=== PATIENT | female | born 1950 | race Caucasian/White ===

== ENCOUNTER 2018-10-14 17:34 | Emergency (ER) | payer MEDICARE, MEDICAID ==
[~2018-10-14] VITALS: Ht 170.2 cm; Wt 101.6 kg
--- NOTE | 2018-10-14 18:59 | NUR ---
Pain med given per Abby RN as per eMar to prepare for transport to CT.
[2018-10-14] MEDS ORDERED: fentaNYL INJECTION 100 MCG/2 ML AMP IVP ONE ×2 (19:00→20:45)
--- NOTE | 2018-10-14 19:00 | NUR ---
Report to Abby SHEEHAN.
[2018-10-14 19:10] LABS: BASOPHILS % (AUTO) 1 % (0-10); EOSINOPHILS % (AUTO) 2 % (0-10); HEMATOCRIT 41 % (35-52); HEMOGLOBIN 12.9 G/DL (11.5-16.0); LYMPHOCYTES # (AUTO) 2.8 X 10^3 (1.0-4.0); LYMPHOCYTES % (AUTO) 37 % (12-44); MEAN CORPUSCULAR HEMOGLOBIN 29 PG (25-34); MEAN CORPUSCULAR HGB CONC 31 G/DL (32-36); MEAN CORPUSCULAR VOLUME 92 FL (80-99); MEAN PLATELET VOLUME 10.1 FL (7.4-10.4); MONOCYTES % (AUTO) 9 % (0-12); NEUTROPHILS # (AUTO) 3.8 X 10^3 (1.8-7.8); NEUTROPHILS % (AUTO) 51 % (42-75); PLATELET COUNT 284 10^3/uL (130-400); RED CELL DISTRIBUTION WIDTH 16.2 % (10.0-14.5); WHITE BLOOD COUNT 7.5 10^3/uL (4.3-11.0)
[2018-10-14 19:11] LABS: BASOPHILS # (AUTO) 0.1 10^3/uL (0.0-0.1); EOSINOPHILS # (AUTO) 0.1 10^3/uL (0.0-0.3); MONOCYTES # (AUTO) 0.7 X 10^3 (0.0-1.0)
[2018-10-14 19:12] LABS: CALCIUM 9.6 MG/DL (8.5-10.1); CREATININE SERUM 0.98 MG/DL (0.60-1.30); POTASSIUM 4.6 MMOL/L (3.6-5.0)
[2018-10-14 19:13] LABS: ALBUMIN 3.8 GM/DL (3.2-4.5); BILIRUBIN,TOTAL 0.2 MG/DL (0.1-1.0); TOTAL PROTEIN 6.2 GM/DL (6.4-8.2)
[2018-10-14 19:14] LABS: BILIRUBIN,URINE NEGATIVE (NEGATIVE); CLARITY,URINE SL CLOUDY; COLOR,URINE DARK YELLOW; GLUCOSE, URINE (UA) NEGATIVE (NEGATIVE); KETONES,URINE TRACE (NEGATIVE); LEUKOCYTE ESTERASE ,URINE TRACE (NEGATIVE); NITRITE,URINE NEGATIVE (NEGATIVE); PROTEIN,URINE TRACE (NEGATIVE); UROBILINOGEN,URINE 0.2 MG/DL (NORMAL)
[2018-10-14 19:15] LABS: BACTERIA,URINE MODERATE /HPF; SQUAMOUS EPITHELIAL CELL,UR 25-50 /HPF
[2018-10-14] MEDS ORDERED: RANI300T4 (19:15)
[2018-10-14] MEDS ORDERED: FENO54TA (19:15)
[2018-10-14] MEDS ORDERED: METO100T12 (19:15)
[2018-10-14] MEDS ORDERED: FLT22013 (19:15)
[2018-10-14] MEDS ORDERED: PREG100C (19:15)
[2018-10-14] MEDS ORDERED: SIMV40TA4 (19:15)
[2018-10-14] MEDS ORDERED: CELE-63 (19:15)
[2018-10-14] MEDS ORDERED: LOSA100T57 (19:15)
[2018-10-14] MEDS ORDERED: BUPR150T7 (19:15)
[2018-10-14] MEDS ORDERED: DULO30CA48 (19:15)
[2018-10-14] MEDS ORDERED: UMEC1BLS (19:15)
[2018-10-14] MEDS ORDERED: FURO40TA4 (19:15)
[2018-10-14] MEDS ORDERED: BENZ200C51 (19:15)
[2018-10-14] MEDS ORDERED: AMLO10TA7 (19:15)
[2018-10-14] MEDS ORDERED: DULO60CA58 (19:15)
[2018-10-14] MEDS ORDERED: POTA10TA10 (19:15)
[2018-10-14] MEDS ORDERED: MIRT15TA6 (19:15)
--- NOTE | 2018-10-14 19:21 | NUR ---
Returned to room per cart from CT.
[2018-10-14] MEDS ORDERED: NS IV 500 ML 500 ML IV ONE (19:33)
--- NOTE | 2018-10-14 19:38 | Diagnostic Imaging Report ---
PROCEDURE: CT lumbar spine without contrast. TECHNIQUE: Multiple contiguous axial images were obtained through the lumbar spine without the use of intravenous contrast. Sagittal and coronal reformations were then performed. Auto Exposure Controls were utilized during the CT exam to meet ALARA standards for radiation dose reduction. INDICATION: Back pain radiating into right leg. FINDINGS: Sagittal and coronal reformatted images show good alignment of the lumbosacral spine. Body height is well maintained throughout without compression fractures. Facets show good alignment without pars defect. There is multilevel degenerative disc disease. This is most severe at L4-L5. Broad-based disc bulge with calcification of the annulus. There is marked hypertrophy of the facets as well causing rather severe trefoil stenosis. Minimal canal dimension is approximately 4 mm. This is causing considerable encroachment upon the lateral recesses, as well. Less severe disc and facet disease noted at L3-L4 and L5-S1. The aorta is atherosclerotic without aneurysm. Paraspinal soft tissues appear normal. IMPRESSION: 1. Multilevel degenerative disc and facet disease most severe at L4-L5 with rather severe trefoil stenosis noted. 2. No acute abnormalities demonstrated. Dictated by: Dictated on workstation # [id number]
--- NOTE | 2018-10-14 19:40 | Diagnostic Imaging Report ---
PROCEDURE: CT pelvis without contrast. TECHNIQUE: Multiple contiguous axial images were obtained through the pelvis without the use of intravenous contrast. Sagittal and coronal reformations were performed. Auto Exposure Controls were utilized during the CT exam to meet ALARA standards for radiation dose reduction. INDICATION: Back pain radiating into right leg. FINDINGS: The pelvis is intact without evidence of fractures. Femoral heads show normal articulation bilaterally. There are mild degenerative changes noted of the hips. The colon shows changes of previous partial sigmoid resection. There is moderate amount of stool present within the colon without evidence of obstruction. Small bowel is not distended. Uterus is not enlarged. There is a cyst noted in the right adnexa measuring 2.5 cm. There is no free fluid. IMPRESSION: 1. Mild degenerative changes noted without acute abnormality. 2. There is a cyst in right adnexa measuring 2.5 cm likely ovarian in nature. This also could represent lymphocele. Dictated by: Dictated on workstation # [id number]
[2018-10-14] MEDS ORDERED: CEPHALEXIN 250 MG (KEFLEX) CAP PO ONE (19:45)
--- NOTE | 2018-10-14 20:13 | ED General ---
General Chief Complaint: Back Problems Stated Complaint: BACK PAIN, LT LEFT NUMB, LOSS OF BLADDER CONTROL Nursing Triage Note: To ED using W/C from car. Pt with reported severe back pain for 2 weeks worsening last week on . Pt saw a chiropractor Sunday with worsening of pain. Pt waited till today to call provider at [facility]. There were no openings to be seen today. Pt used 2 Oxycodone at 0730. Nursing Sepsis Screen: No Definite Risk Source of Information: Patient Exam Limitations: No Limitations History of Present Illness Date Seen by Provider: Oct 14, 2018 Time Seen by Provider: 18:16 Initial Comments This 67-year-old woman is brought to the emergency room by a friend and caregiver for reasons of lower back pain and left leg pain. This has been a progressively worsening problem. She was having some minor issues before traveling to [place] at the end of August. Her primary problem at that time was back spasms. She returned from [place] September 30 and was having increasing difficulty walking due to pain. She also has some weakness in the left leg. She additionally complains of some trouble with urinary incontinence worsening over the past few months. She had a massage in [place] which seemed to worsen the problem. She also saw a chiropractor on October 12 and that did not improve the problem. She also complains of some burning with urination. She presently takes oxycodone, Lyrica, and Celebrex. She reports her pain at present is 7 or 8 out of 10. She last took her pain medications and 07:30. She additionally take Advil 400 mg noon. Her caregiver reports there has been some left knee swelling as well. Allergies and Home Medications Allergies Coded Allergies: morphine (Unverified Allergy, Intermediate, SOA, 10/14/18) Home Medications Gabapentin 300 Mg Capsule, 300 MG PO BID PRN for PAIN-MODERATE TO SEVERE Prescribed by: DOROTEO VILLALOBOS on 10/14/182032 Prednisone 20 Mg Tab, 40 MG PO DAILY Prescribed by: DOROTEO VILLALOBOS on 10/14/182032 Patient Home Medication List Home Medication List Reviewed: Yes Review of Systems Review of Systems Constitutional: no symptoms reported EENTM: no symptoms reported Respiratory: no symptoms reported Cardiovascular: no symptoms reported Gastrointestinal: no symptoms reported Genitourinary: no symptoms reported : No Musculoskeletal: see HPI Skin: no symptoms reported Psychiatric/Neurological: See HPI Hematologic/Lymphatic: No Symptoms Reported Past Zphjpzd-Klntyq-Abbsch Hx Past Med/Social Hx: Reviewed and Corrections made Patient Social History Alcohol Use: Past History Recreational Drug Use: No Smoking Status: Current Everyday Smoker Type Used: Cigarettes 2nd Hand Smoke Exposure: No Recent Foreign Travel: No Contact w/Someone Who Travel: No Recent Infectious Disease Expo: No Recent Hopitalizations: No Physical Abuse: No Sexual Abuse: No Mistreated: No Fear: No Seasonal Allergies Seasonal Allergies: No Past Medical History Surgeries: Yes (Colon resection, Incisional hernia repair, colonoscopy/EGD) Gallbladder, Tubal Ligation Respiratory: Yes (Has CPAP at home, chronic O2 at 2L/m, tobaccoism) Sleep Apnea, COPD (dependent on supplemental oxygen) Cardiac: Yes High Cholesterol, Hypertension Neurological: Yes (Coarse tremors) [employer]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 Genitourinary: Yes (CKD GFR approx-42 (02/2018)) Renal Failure Gastrointestinal: Yes Gastroesophageal Reflux, Polyps Musculoskeletal: Yes (Polymyalgia, reported back pain) Fibromyalgia HEENT: No Cancer: Yes (2012 Colon Ca, 1989 Leukemia) Leukemia, Colon Did You Recieve Any Treatments: Yes What Type of Treatment Did You: Surgical Intervention Psychosocial: Yes Sleep Difficulties Integumentary: Yes (sunburned in [place] while on antibiotics) Recent Skin Changes Blood Disorders: No Physical Exam Vital Signs Vital Signs - First Documented 10/14/18 17:40 Temp 96.9 Pulse 58 Resp 18 B/P (MAP) 107/64 (78) Pulse Ox 92 O2 Delivery Nasal Cannula O2 Flow Rate 2.00 Capillary Refill : Less Than 3 Seconds Height, Weight, BMI Height: 5'7.00" Weight: 224lbs. oz. 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 Norm as Tested, Motor Weakness (there is weakness with flexion and dorsiflexion of the ankle as well as with the proximal muscles.) Skin: Normal Color, Warm/Dry Progress/Results/Core Measures Suspected Sepsis Recent Fever Within 48 Hours: No Infection Criteria Present: None New/Unexplained Altered Menta: No Sepsis Screen: No Definite Risk SIRS Temperature:96.9 Pulse: 58 Respiratory Rate: 18 Laboratory Tests 10/14/18 18:10: White Blood Count 7.5 Blood Pressure 107 /64 Mean: 78 Laboratory Tests 10/14/18 18:10: Creatinine 0.98, Platelet Count 284, Total Bilirubin 0.2 Results/Orders Lab Results Laboratory Tests Test 10/14/18 18:10 10/14/18 18:28 Range/Units White Blood Count 7.5 4.3-11.0 10^3/uL Red Blood Count 4.47 4.35-5.85 10^6/uL Hemoglobin 12.9 11.5-16.0 G/DL Hematocrit 41 35-52 % Mean Corpuscular Volume 92 80-99 FL Mean Corpuscular Hemoglobin 29 25-34 PG Mean Corpuscular Hemoglobin Concent 31 L 32-36 G/DL Red Cell Distribution Width 16.2 H 10.0-14.5 % Platelet Count 284 130-400 10^3/uL Mean Platelet Volume 10.1 7.4-10.4 FL Neutrophils (%) (Auto) 51 42-75 % Lymphocytes (%) (Auto) 37 12-44 % Monocytes (%) (Auto) 9 0-12 % Eosinophils (%) (Auto) 2 0-10 % Basophils (%) (Auto) 1 0-10 % Neutrophils # (Auto) 3.8 1.8-7.8 X 10^3 Lymphocytes # (Auto) 2.8 1.0-4.0 X 10^3 Monocytes # (Auto) 0.7 0.0-1.0 X 10^3 Eosinophils # (Auto) 0.1 0.0-0.3 10^3/uL Basophils # (Auto) 0.1 0.0-0.1 10^3/uL Sodium Level 143 135-145 MMOL/L Potassium Level 4.6 3.6-5.0 MMOL/L Chloride Level 104 98-107 MMOL/L Carbon Dioxide Level 28 21-32 MMOL/L Anion Gap 11 5-14 MMOL/L Blood Urea Nitrogen 22 H 7-18 MG/DL Creatinine 0.98 0.60-1.30 MG/DL Estimat Glomerular Filtration Rate 56 BUN/Creatinine Ratio 22 Glucose Level 96 70-105 MG/DL Calcium Level 9.6 8.5-10.1 MG/DL Corrected Calcium 9.8 8.5-10.1 MG/DL Total Bilirubin 0.2 0.1-1.0 MG/DL Aspartate Amino Transf (AST/SGOT) 19 5-34 U/L Alanine Aminotransferase (ALT/SGPT) 13 0-55 U/L Alkaline Phosphatase 45 40-136 U/L Total Protein 6.2 L 6.4-8.2 GM/DL Albumin 3.8 3.2-4.5 GM/DL Urine Color DARK YELLOW Urine Clarity SL CLOUDY Urine pH 6.0 5-9 Urine Specific [place] 1.025 H 1.016-1.022 Urine Protein TRACE H NEGATIVE Urine Glucose (UA) NEGATIVE NEGATIVE Urine Ketones TRACE H NEGATIVE Urine Nitrite NEGATIVE NEGATIVE Urine Bilirubin NEGATIVE NEGATIVE Urine Urobilinogen 0.2 NORMAL MG/DL Urine Leukocyte Esterase TRACE H NEGATIVE Urine RBC (Auto) NEGATIVE NEGATIVE Urine RBC NONE /HPF Urine WBC 2-5 /HPF Urine Squamous Epithelial Cells 25-50 H /HPF Urine Crystals NONE /LPF Urine Bacteria MODERATE H /HPF Urine Casts PRESENT /LPF Urine Hyaline Casts 10-25 H /LPF Urine Mucus LARGE H /LPF Urine Culture Indicated NO My Orders Orders - DOROTEO WEINSTEIN MD Cbc With Automated Diff (10/14/18 18:16) Comprehensive Metabolic Panel (10/14/18 18:16) Ua Culture If Indicated (10/14/18 18:16) Ed Iv/Invasive Line Start (10/14/18 18:16) Ct Lumbar Spine Wo (10/14/18 18:50) Ct Pelvis Wo (10/14/18 18:50) Fentanyl Injection (Sublimaze Injection (10/14/18 19:00) Ns Iv 500 Ml (Sodium Chloride 0.9%) (10/14/18 19:33) Cephalexin Capsule (Keflex Capsule) (10/14/18 19:45) Methylprednisolone Sod Succ (Solu-Medrol (10/14/18 20:15) Fentanyl Injection (Sublimaze Injection (10/14/18 20:45) Medications Given in ED Current Medications Medications Dose Ordered Sig/Ayse Route Start Time Stop Time Status Last Admin Dose Admin Cephalexin HCl 500 mg ONCE ONCE PO 10/14/18 19:45 10/14/18 19:46 DC 10/14/18 20:04 500 MG Fentanyl Citrate 50 mcg ONCE ONCE IVP 10/14/18 19:00 10/14/18 19:01 DC 10/14/18 18:59 50 MCG Fentanyl Citrate 50 mcg ONCE ONCE IVP 10/14/18 20:45 10/14/18 20:46 DC 10/14/18 20:38 50 MCG Methylprednisolone Sodium Succinate 125 mg ONCE ONCE IVP 10/14/18 20:15 10/14/18 20:16 DC 10/14/18 20:23 125 MG Sodium Chloride 500 ml @ 0 mls/hr Q0M ONCE IV 10/14/18 19:33 10/14/18 19:35 DC 10/14/18 20:04 999 MLS/HR Vital Signs/I&O 10/14/18 10/14/18 17:40 20:53 Temp 96.9 98.5 Pulse 58 67 Resp 18 16 B/P (MAP) 107/64 (78) 125/87 (100) Pulse Ox 92 93 O2 Delivery Nasal Cannula Room Air O2 Flow Rate 2.00 Capillary Refill : Less Than 3 Seconds Blood Pressure Mean: 78 Progress Note : Progress Note Lab workup revealed no significant abnormalities. UA did not strongly suggest urinary tract infection. Squamous cells suggesting contamination with skin. Specific gravity was high and there were trace ketones and casts in her urine. This suggests some hypovolemia. A 500 mL normal saline bolus was administered. Fentanyl was given for pain management. I suggested trying Neurontin for pain management. CT scan revealed lumbar stenosis which correlates well with her symptoms. Solu-Medrol was given in the ER with a prescription of prednisone to follow. I'm hopeful this will help reduce her symptoms while she seeks referral to a life skills specialist. Return precautions were discussed. She was given contact information for Dr. Gallardo and his partners. She requested records be sent to him in case she follows up there, and he was copied on this note. Patient was discharged into the care of her friend and caregiver. Diagnostic Imaging Diagonstic Imaging: CT Plain Films/CT/US/NM/MRI: other (lumbar spine) Comments CT viewed by me and report reviewed. See report below: NAME: RADHA KERN [facility] REC#: [id number] PT STATUS: REG ER : 1950 PHYSICIAN: DOROTEO WEINSTEIN MD ADMIT DATE: 10/14/18/ER FS Signed Date of Exam:10/14/18 CT LUMBAR SPINE WO PROCEDURE: CT lumbar spine without contrast. TECHNIQUE: Multiple contiguous axial images were obtained through the lumbar spine without the use of intravenous contrast. Sagittal and coronal reformations were then performed. Auto Exposure Controls were utilized during the CT exam to meet ALARA standards for radiation dose reduction. INDICATION: Back pain radiating into right leg. FINDINGS: Sagittal and coronal reformatted images show good alignment of the lumbosacral spine. Body height is well maintained throughout without compression fractures. Facets show good alignment without pars defect. There is multilevel degenerative disc disease. This is most severe at L4-L5. Broad-based disc bulge with calcification of the annulus. There is marked hypertrophy of the facets as well causing rather severe trefoil stenosis. Minimal canal dimension is approximately 4 mm. This is causing considerable encroachment upon the lateral recesses, as well. Less severe disc and facet disease noted at L3-L4 and L5-S1. The aorta is atherosclerotic without aneurysm. Paraspinal soft tissues appear normal. IMPRESSION: 1. Multilevel degenerative disc and facet disease most severe at L4-L5 with rather severe trefoil stenosis noted. 2. No acute abnormalities demonstrated. Dictated by: Dictated on workstation # [id number] Dict: 10/14/181930 Trans: 10/14/181947 [facility] [id number] Interpreted by: JESSICA ESQUIVEL MD Electronically signed by: JESSICA ESQUIVEL MD 10/14/181947 Diagonstic Imaging: CT Plain Films/CT/US/NM/MRI: pelvis Comments CT pelvis viewed by me and report reviewed. See report below: NAME: RADHA KERN [facility] REC#: [id number] PT STATUS: REG ER : 1950 PHYSICIAN: DOROTEO WEINSTEIN MD ADMIT DATE: 10/14/18/ER FS Signed Date of Exam:10/14/18 CT PELVIS WO PROCEDURE: CT pelvis without contrast. TECHNIQUE: Multiple contiguous axial images were obtained through the pelvis without the use of intravenous contrast. Sagittal and coronal reformations were performed. Auto Exposure Controls were utilized during the CT exam to meet ALARA standards for radiation dose reduction. INDICATION: Back pain radiating into right leg. FINDINGS: The pelvis is intact without evidence of fractures. Femoral heads show normal articulation bilaterally. There are mild degenerative changes noted of the hips. The colon shows changes of previous partial sigmoid resection. There is moderate amount of stool present within the colon without evidence of obstruction. Small bowel is not distended. Uterus is not enlarged. There is a cyst noted in the right adnexa measuring 2.5 cm. There is no free fluid. IMPRESSION: 1. Mild degenerative changes noted without acute abnormality. 2. There is a cyst in right adnexa measuring 2.5 cm likely ovarian in nature. This also could represent lymphocele. Dictated by: Dictated on workstation # [id number] Dict: 10/14/181932 Trans: 10/14/181947 [facility] [id number] Interpreted by: JESSICA ESQUIVEL MD Electronically signed by: JESSICA SEQUIVEL MD 10/14/181947 Departure Impression Primary Impression: Lumbar spinal stenosis Qualified Codes: M48.061 - Spinal stenosis, lumbar region without neurogenic claudication Additional Impression: Lumbar radiculopathy Disposition: 01 HOME, SELF-CARE Condition: Improved Departure-Patient Inst. Referrals: CARIN DORMAN MD (PCP) Primary Care Physician KENIA GALLARDO MD Patient Instructions: Spinal Stenosis Add. Discharge Instructions: Your symptoms are most likely related to spinal stenosis. You may continue taking the pain medications previously prescribed. Add gabapentin (Neurontin) as prescribed for pain not controlled by your other medications. Use this medication with caution as it may cause drowsiness. Seek referral to a life skills specialist as soon as possible. The contact number for Dr. Gallardo and other spine specialists at [facility] [address] [place] [address] in [place] is below. You may seek referral to them or a life skills specialist selected by you and your primary care provider. Please call your primary care provider tomorrow morning to expedite this process. Use your walker when ambulating for support. If you have worsening symptoms of leg weakness, loss of bowel or bladder control, or escalating pain or other complications please return to the ER. It may be beneficial to select an ER with MRI capability such as an ER in [facility] if you're able. All discharge instructions reviewed with patient and/or family. Voiced understanding. Scripts Gabapentin (Gabapentin) 300 Mg Capsule 300 MG PO BID PRN for PAIN-MODERATE TO SEVERE, #20 CAP Prov: DOROTEO WEINSTEIN MD 10/14/18 Prednisone (Prednisone) 20 Mg Tab 40 MG PO DAILY, #6 TAB 0 Refills Prov: DOROTEO WEINSTEIN MD 10/14/18 Copy Copies To 1: KENIA GALLARDO MD, JOSHUA T MD Oct 14, 2018 20:12
[2018-10-14] MEDS ORDERED: methylPREDNISolone 125 MG (Solu-MEDROL) VIAL IVP ONE (20:15)
[2018-10-14] MEDS ORDERED: PRD20T PO (20:33)
[2018-10-14] MEDS ORDERED: GABA-488 PO (20:33)
[2018-10-14 20:53] VITALS: BP 125/87
== END 2018-10-14 20:48 | disposition home or self-care (01) ==
LOC: ER FS 17:37
DX: M48.061 Spinal stenosis, lumbar region without neurogenic claudication (principal); M54.16 Radiculopathy, lumbar region; J44.9 Chronic obstructive pulmonary disease, unspecified; G47.30 Sleep apnea, unspecified; E78.00 Pure hypercholesterolemia, unspecified; I12.9 Hypertensive chronic kidney disease with stage 1 through stage 4 chronic kidney disease, or unspecified chronic kidney disease; N18.9 Chronic kidney disease, unspecified; M79.7 Fibromyalgia; K21.9 Gastro-esophageal reflux disease without esophagitis; F17.210 Nicotine dependence, cigarettes, uncomplicated; Z99.81 Dependence on supplemental oxygen; Z88.5 Allergy status to narcotic agent; Z85.038 Personal history of other malignant neoplasm of large intestine; Z85.6 Personal history of leukemia; Z86.010 Personal history of colon polyps; Z79.82 Long term (current) use of aspirin; Z90.49 Acquired absence of other specified parts of digestive tract; Z98.51 Tubal ligation status; Z98.890 Other specified postprocedural states
CPT/HCPCS: 36415; 72131; 72192; 80053; 81000; 85025; 96374; 96375; 96376